=== PATIENT | female | born 1975 | race American Indian/Alaskan Native ===

== ENCOUNTER 2016-06-28 16:16 | Emergency (ER) | payer OTHER, MEDICAID | END 2016-06-28 16:59 | disposition left against medical advice (07) | LOC: DL.ED 16:16 | DX: Z53.21 Procedure and treatment not carried out due to patient leaving prior to being seen by health care provider (principal) ==

== ENCOUNTER 2016-07-15 17:00 | Emergency (ER) | payer OTHER, MEDICAID ==
--- NOTE | 2016-07-15 17:03 | EDM.PDOC ---
<Ozzie Sanches - Last Filed: 07/15/16 18:52> ED HPI DIABETIC EMERGENCY - General Chief Complaint: Headache Stated Complaint: HEADACHE Time Seen by Provider: 07/15/16 17:47 Source of Information: Reports: Patient, Old records, RN, RN notes reviewed History Limitations: Reports: No limitations - Related Data Allergies/ADRs: Allergies Allergy/AdvReac Type Severity Reaction Status Date / Time No Known Allergies Allergy Verified 07/15/16 17:39 Home Meds: Home Meds Acetaminophen [Tylenol] 650 mg PO ASDIRECTED PRN 05/07/16 [History] Ibuprofen 400 mg PO ASDIRECTED PRN 05/07/16 [History] Past Medical History HEENT History: Reports: Sinusitis Cardiovascular History: Reports: High cholesterol, Hypertension Respiratory History: Reports: Bronchitis, recurrent Gastrointestinal History: Reports: None Genitourinary History: Reports: UTI, recurrent 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: , Other (see below) Other OB/BYN History: all c-sect Musculoskeletal History: Reports: Fibromyalgia Neurological History: Reports: Migraines Psychiatric History: Reports: None Endocrine/Metabolic History: Reports: Diabetes, type II Hematologic History: Reports: Anemia, Blood transfusion(s) Immunologic History: Reports: None Oncologic (Cancer) History: Reports: None Dermatologic History: Reports: None - Infectious Disease History Infectious Disease History: Reports: Chicken pox - Past Surgical History Head Surgeries/Procedures: Reports: None Social & Family History - Family History Cardiac: Reports: High cholesterol, Hypertension, [place] Other Cardiac Family History: unkle on moms side. 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[facility] [employer] Course - Vital Signs Last Recorded V/S: Last Vital Signs Temp 96.7 F 07/15/16 20:26 Pulse 79 07/15/16 20:26 Resp 14 07/15/16 20:26 BP 149/95 H 07/15/16 20:26 Pulse Ox 99 07/15/16 20:26 - Orders/Labs/Meds Orders: Active Orders 24 hr Category Date Time Status POC Glucose [Blood Glucose Check, Bedside] [RC] ONETIME Care 07/15/16 17:50 Active Ready for Discharge [RC] PER UNIT ROUTINE Care 07/15/16 20:30 Ordered Labs: Laboratory Tests 07/15/16 07/15/16 07/15/16 Range/Units 17:49 19:25 19:25 WBC 7.5 (5.0-10.0) 10^3/uL RBC 4.06 L (4.2-5.4) 10^6/uL Hgb 8.9 L (12.0-16.0) g/dL Hct 28.9 L (37.0-47.0) % MCV 71.2 L (80-100) fL MCH 21.9 L (27.0-34.0) pg MCHC 30.8 L (33.0-35.0) g/dL Plt Count 355 (150-450) 10^3/uL Neut % (Auto) 57.2 (42.2-75.2) % Lymph % (Auto) 34.5 (20.5-50.1) % [place] % (Auto) 5.7 (2-8) % Eos % (Auto) 2.3 (1.0-3.0) % Baso % (Auto) 0.3 (0.0-1.0) % Sodium 136 (135-145) mmol/L Potassium 3.5 L (3.6-5.0) mmol/L Chloride 103 (101-111) mmol/L Carbon Dioxide 25.0 (21.0-31.0) mmol/L Anion Gap 11.5 BUN 15 (7-18) mg/dL Creatinine 0.5 L (0.6-1.3) mg/dL Est Cr Clr Drug Dosing TNP Estimated GFR (MDRD) > 60 BUN/Creatinine Ratio 30.00 Glucose 137 H (74-105) mg/dL POC Glucose 153 H (70-105) mg/dl Calcium 8.5 (8.4-10.2) mg/dl Total Bilirubin 0.3 (0.2-1.0) mg/dL AST 16 (10-42) IU/L ALT 13 (10-60) IU/L Alkaline Phosphatase 66 (42-121) IU/L Total Protein 6.6 L (6.7-8.2) g/dl Albumin 3.8 (3.2-5.5) g/dl Globulin 2.8 Albumin/Globulin Ratio 1.36 Meds: Medications Discontinued Medications Generic Name Dose Route Start Last Admin Trade Name Maverick PRN Reason Stop Dose Admin Sodium Chloride 1,000 mls @ 999 mls/hr 07/15/16 19:11 07/15/16 19:27 Normal Saline IV 07/15/16 20:11 999 mls/hr .BOLUS ONE Administration Ketorolac Tromethamine 30 mg 07/15/16 19:12 07/15/16 19:29 Toradol IVPUSH 07/15/16 19:13 30 mg ONETIME ONE Administration Ondansetron HCl 4 mg 07/15/16 19:12 07/15/16 19:27 Zofran IV 07/15/16 19:13 4 mg ONETIME ONE Administration Departure - Departure Disposition: Home, Self-Care 01 Clinical Impression: Tension-type headache Additional Instructions: Follow up in clinic. Dr. Kait Mckeon is here during the month of July and she would be happy to see you in the clinic to help manage some of your health conditions. You may start an over the counter multivitamin with iron to help your low blood counts. - My Orders Last 24 Hours: My Active Orders 07/15/16 20:30 Ready for Discharge [RC] PER UNIT ROUTINE - Assessment/Plan Last 24 Hours: My Active Orders 07/15/16 20:30 Ready for Discharge [RC] PER UNIT ROUTINE <Kait Mckeon - Last Filed: 07/15/16 20:39> ED HPI DIABETIC EMERGENCY - History of Present Illness INITIAL COMMENTS - FREE TEXT/NARRATIVE: Nichol Ridley is a 41 year old female presenting to the ED with 3 days of headache. She has a history of uncontrolled diabetes, hypertension, and hyperlipidemia. She is concerned about her headache because her mother has a history of strokes and Nichol knows she is not in good health. She reports 3 days of headache pain that is intermittent. It affects the posterior aspect of the head and wraps to the front. The pain is sharp and throbbing. She had an episode of dizziness and "just not feeling right" this afternoon that passed. She has tried Tylenol and ibuprofen as recent as 2-3 PM today without relief. She reports pain of 6-7/10. This is not the worst headache of her life. She has some noise sensitivity and subjective warmth. She denies vision changes. She is feeling anxious and had some chest tightness but it has past. Past Medical History Endocrine/Metabolic History: Reports: Diabetes, type II ED ROS GENERAL - Review of Systems Review Of Systems: ROS reveals no pertinent complaints other than HPI. ED EXAM GENERAL NO PERIP PULSE - Physical Exam Exam: See Below Exam Limited By: No limitations General Appearance: alert, anxious, mild distress (due to pain) Eye Exam: bilateral eye: nystagmus (2 beats of lateral nystagmus bilaterally that extinguish with repeat testing), PERRL (normal) Ears: normal external exam, normal canal, normal TMs Nose: normal inspection, normal mucosa, no blood Throat/Mouth: Normal inspection, Normal lips, Normal teeth, Normal gums, Normal oropharynx, Normal voice, No airway compromise Head: atraumatic, normocephalic Neck: normal inspection, supple, non-tender, full range of motion Respiratory/Chest: no respiratory distress, lungs clear, normal breath sounds, no accessory muscle use, chest non-tender Cardiovascular: normal peripheral pulses, regular rate, rhythm, no edema, no gallop, no JVD, no murmur, no rub GI/Abdominal: normal bowel sounds, soft, non tender, no organomegaly, no distention, no abnormal bruit, no mass Back Exam: normal inspection, full range of motion, NT Extremities: normal inspection, normal range of motion, non-tender, normal capillary refill, no pedal edema Neurological: alert, oriented, CN II-XII intact, normal cognition, normal gait, normal reflexes, no motor/sensory deficits Psychiatric: normal affect, normal mood Course - Re-Assessments/Exams Free Text/Narrative Re-Assessment/Exam: 07/15/16 20:33 Patient was re-evaluated and her headache pain decreased to 4/10 intensity in the frontal aspect of the head following pain medication and IV fluids. Her hemoglobin is low at 8.9 and she reports just finishing a heavy period. We discussed the need to start OTC iron and close outpatient follow-up of her multiple medical conditions. She is in improved condition and ready for discharge to home. 07/15/16 20:38 Departure - Departure Time of Disposition: 20:39 - My Orders Last 24 Hours: My Active Orders 07/15/16 20:30 Ready for Discharge [RC] PER UNIT ROUTINE - Assessment/Plan Last 24 Hours: My Active Orders 07/15/16 20:30 Ready for Discharge [RC] PER UNIT ROUTINE Assessment:: Headache Likely iron deficiency anemia Uncontrolled DMT2 Uncontrolled HTN Dysmenorrhea by history Patient has an improved level of headache pain and is discharged to home with recommendations for close outpatient follow-up. She will start an OTC multivitamin with iron and increase PO hydration. Questions were answered and she is comfortable with the plan.
[2016-07-15] MEDS ORDERED: Sodium Chloride 0.9% 1,000 ML IV ONE (19:11)
[2016-07-15] MEDS ORDERED: Ketorolac 30 MG/ML SDV IVPUSH ONE (19:12)
[2016-07-15] MEDS ORDERED: Ondansetron 4 MG/2 ML SDV IV ONE (19:12)
[2016-07-15 19:51] LABS: CHLORIDE,CL 103 mmol/L (101-111); SODIUM,NA 136 mmol/L (135-145)
[2016-07-15 20:27] VITALS: BP 149/95
== END 2016-07-15 20:50 | disposition home or self-care (01) ==
LOC: DL.ED 17:00
DX: G44.209 Tension-type headache, unspecified, not intractable (principal); E11.9 Type 2 diabetes mellitus without complications; I10 Essential (primary) hypertension; E78.00 Pure hypercholesterolemia, unspecified; Z86.2 Personal history of diseases of the blood and blood-forming organs and certain disorders involving the immune mechanism
CPT/HCPCS: 36415; 80053; 82962; 85025; 96365; 96375; 99284; J1885; J2405; J7030

== ENCOUNTER 2017-01-04 10:28 | Emergency (ER) | payer OTHER ==
--- NOTE | 2017-01-04 10:32 | EDM.PDOC ---
ED HPI GENERAL MEDICAL PROBLEM - General Chief Complaint: General Stated Complaint: ACHY, SICK Time Seen by Provider: 01/04/17 10:31 Source of Information: Reports: Patient, RN, RN Notes Reviewed History Limitations: Reports: No Limitations - History of Present Illness INITIAL COMMENTS - FREE TEXT/NARRATIVE: Patient presents to the ER with c/o generalized aches. SHe states she feels nauseated at times, but does not vomit. She feels as if she has the chills frequently but is unsure about a fever. She denies chest pain or sob. She denies any diarrhea. She admits to having headaches at times, and some frontal pressure. She states she did not go to work yesterday or today. Onset: Gradual Onset Date: 01/03/17 Duration: Constant Location: Reports: Generalized Quality: Reports: Ache Severity: Moderate Improves with: Reports: None Worsens with: Reports: None Associated Symptoms: Reports: Fever/Chills, Headaches Headache Pain Score (Numeric/FACES): 8 - Related Data Allergies Allergy/AdvReac Type Severity Reaction Status Date / Time No Known Allergies Allergy Verified 01/04/17 10:44 Home Meds: Home Meds Acetaminophen 975 mg PO QID PRN 01/04/17 [History] Aspirin [Adult Low Dose Aspirin EC] 81 mg PO DAILY 01/04/17 [History] Aspirin [Ecotrin] 81 mg PO DAILY 01/04/17 [History] Ferrous Gluconate 324 mg PO TID 01/04/17 [History] Ibuprofen 800 mg PO Q6HR PRN 01/04/17 [History] Loratadine 10 mg PO DAILY PRN 01/04/17 [History] Past Medical History HEENT History: Reports: Sinusitis Cardiovascular History: Reports: High Cholesterol, Hypertension Respiratory History: Reports: Bronchitis, Recurrent Gastrointestinal History: Reports: None Genitourinary History: Reports: UTI, Recurrent 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: , 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) Other OB/BYN History: all c-sect Musculoskeletal History: Reports: Fibromyalgia Neurological History: Reports: Migraines Psychiatric History: Reports: None Endocrine/Metabolic History: Reports: Diabetes, Type II Hematologic History: Reports: Anemia, Blood Transfusion(s) Immunologic History: Reports: None Oncologic (Cancer) History: Reports: None Dermatologic History: Reports: None - Infectious Disease History Infectious Disease History: Reports: Chicken Pox - Past Surgical History Female Surgical History: Reports: Tubal Ligation Social & Family History - Family History Family Medical History: Noncontributory Cardiac: Reports: High Cholesterol, Hypertension, [place] Other Cardiac Family History: unkle on moms side. Musculoskeletal: Reports: Back pain, Chronic Other Musculoskeletal Family History: brother Endocrine/Metabolic: Reports: Diabetes, type II Other Endocrine/Metabolic Family History: mom - Tobacco Use Smoking Status *Q: Never Smoker Years of Tobacco use: 5 Used Tobacco, but Quit: Yes Month Tobacco Last Used: apr 5 years ago Second Hand Smoke Exposure: No - Caffeine Use Caffeine Use: Reports: Coffee, Tea - Alcohol Use Days Per Week of Alcohol Use: 0 - Recreational Drug Use Recreational Drug Use: No - Living Situation & Occupation Occupation: Employed ED ROS GENERAL - Review of Systems Review Of Systems: ROS reveals no pertinent complaints other than HPI. ED EXAM, GENERAL - Physical Exam Exam: See Below Exam Limited By: No Limitations General Appearance: Alert, WD/WN, No Apparent Distress Eye Exam: Bilateral Eye: Normal Inspection, PERRL Ears: Normal External Exam, Normal Canal, Hearing Grossly Normal, Normal TMs Nose: Normal Inspection, Normal Mucosa, No Blood Throat/Mouth: Normal Inspection, Normal Lips, Normal Teeth, Normal Gums, Normal Oropharynx, Normal Voice, No Airway Compromise Head: Atraumatic, Normocephalic Neck: Normal Inspection Respiratory/Chest: No Respiratory Distress, Lungs Clear, Normal Breath Sounds, No Accessory Muscle Use, Chest Non-Tender Cardiovascular: Normal Peripheral Pulses, Regular Rate, Rhythm, No Edema, No Gallop, No JVD, No Murmur, No Rub Peripheral Pulses: 2+: Radial (L), Radial (R) GI/Abdominal: Normal Bowel Sounds, Soft, Non-Tender, No Organomegaly, No Distention, No Abnormal Bruit, No Mass, Pelvis Stable (Female) Exam: Deferred Rectal (Female) Exam: Deferred Back Exam: Normal Inspection, Full Range of Motion Extremities: Normal Inspection, Normal Range of Motion, Non-Tender, No Pedal Edema, Normal Capillary Refill Neurological: Alert, Oriented, Normal Cognition, Normal Gait, No Motor/Sensory Deficits Psychiatric: Normal Affect, Normal Mood Skin Exam: Warm, Dry, Intact, Normal Color, No Rash Lymphatic: No Adenopathy Course - Vital Signs Last Recorded V/S: Last Vital Signs Temp 98 F 01/04/17 10:46 Pulse 70 01/04/17 10:46 Resp 16 01/04/17 10:46 BP 109/69 01/04/17 10:46 Pulse Ox 99 01/04/17 10:46 - Orders/Labs/Meds Labs: Group A Strep screen: NEGATIVE Influenza A & B: NEGATIVE Departure - Departure Time of Disposition: 11:46 Disposition: Home, Self-Care 01 Condition: Good Clinical Impression: Viral upper respiratory infection - Discharge Information Instructions: Upper Respiratory Infection, Adult, [id number] Forms: ED Department Discharge Additional Instructions: Drink plenty of fluids. Rest. Follow up in the clinic this week if no improvement. Use the Flonase you have at home as directed. Tylenol as directed for pain/fever. Ibuprofen as directed for pain/fever.
[2017-01-04 10:47] VITALS: BP 109/69
[2017-01-04] MEDS ORDERED: Lidocaine/EPINEPHrine/Tetracaine Soln 5 ML Each TOP ONE (11:28)
== END 2017-01-04 11:55 | disposition home or self-care (01) ==
LOC: DL.ED 10:28
DX: J06.9 Acute upper respiratory infection, unspecified (principal); I10 Essential (primary) hypertension; E78.00 Pure hypercholesterolemia, unspecified; E11.9 Type 2 diabetes mellitus without complications; Z86.2 Personal history of diseases of the blood and blood-forming organs and certain disorders involving the immune mechanism; Z98.51 Tubal ligation status; Z79.82 Long term (current) use of aspirin
CPT/HCPCS: 87081; 87430; 87804; 99283

== ENCOUNTER 2017-04-15 19:23 | Emergency (ER) | payer OTHER ==
[2017-04-15 19:41] VITALS: BP 145/82
--- NOTE | 2017-04-15 19:48 | EDM.PDOC ---
ED HPI GENERAL MEDICAL PROBLEM - General Chief Complaint: Lower Extremity Injury/Pain Stated Complaint: TIBURCIO AZAR [id number] Time Seen by Provider: 04/15/17 19:44 Source of Information: Reports: Patient, RN, RN Notes Reviewed History Limitations: Reports: No Limitations - History of Present Illness INITIAL COMMENTS - FREE TEXT/NARRATIVE: Pt presents to the ER with c/o pain in the tailbone area. She states she slipped yesterday on the ice. She states she hit her head first and then the low back and buttocks area. She states she has a lump on the back of the head. She states when she hit her head "everything went black for a second, but came back" but did not lose consciousness. She states her pain in her tailbone area makes it difficult to sit. She states it feels better when she stands. Onset: Sudden Onset Date: 04/14/17 Quality: Reports: Ache, Throbbing Severity: Moderate Improves with: Reports: None Worsens with: Reports: None Associated Symptoms: Reports: No Other Symptoms Treatments MEDICATION SPECIALIST: Reports: NSAIDS Pelvic Pain Score (Numeric/FACES): 8 - Related Data Allergies Allergy/AdvReac Type Severity Reaction Status Date / Time No Known Allergies Allergy Verified 01/04/17 10:44 Home Meds: Home Meds Acetaminophen 975 mg PO QID PRN 01/04/17 [History] Aspirin [Ecotrin] 81 mg PO DAILY 01/04/17 [History] Ferrous Gluconate 324 mg PO DAILY 01/04/17 [History] Ibuprofen 800 mg PO Q6HR PRN 01/04/17 [History] Loratadine 10 mg PO DAILY PRN 01/04/17 [History] Past Medical History HEENT History: Reports: Sinusitis Cardiovascular History: Reports: High Cholesterol, Hypertension Respiratory History: Reports: Bronchitis, Recurrent Gastrointestinal History: Reports: None Genitourinary History: Reports: UTI, Recurrent 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: , 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) Other OB/BYN History: all c-sect Musculoskeletal History: Reports: Fibromyalgia Neurological History: Reports: Migraines Psychiatric History: Reports: None Endocrine/Metabolic History: Reports: Diabetes, Type II Hematologic History: Reports: Anemia, Blood Transfusion(s) Immunologic History: Reports: None Oncologic (Cancer) History: Reports: None Dermatologic History: Reports: None - Infectious Disease History Infectious Disease History: Reports: Chicken Pox - Past Surgical History Female Surgical History: Reports: Tubal Ligation Social & Family History - Family History Family Medical History: Noncontributory Cardiac: Reports: High Cholesterol, Hypertension, [place] Other Cardiac Family History: unkle on moms side. Musculoskeletal: Reports: Back pain, Chronic Other Musculoskeletal Family History: brother Endocrine/Metabolic: Reports: Diabetes, type II Other Endocrine/Metabolic Family History: mom - Tobacco Use Smoking Status *Q: Unknown Ever Smoked Years of Tobacco use: 5 Used Tobacco, but Quit: Yes Month Tobacco Last Used: apr 5 years ago Second Hand Smoke Exposure: No - Caffeine Use Caffeine Use: Reports: Coffee - Alcohol Use Days Per Week of Alcohol Use: 0 - Recreational Drug Use Recreational Drug Use: No - Living Situation & Occupation Occupation: Employed Review of Systems - Review of Systems Review Of Systems: ROS reveals no pertinent complaints other than HPI. ED EXAM, GENERAL - Physical Exam Exam: See Below Exam Limited By: No Limitations General Appearance: Alert, WD/WN, Mild Distress Eye Exam: Bilateral Eye: EOMI, Normal Inspection, PERRL Ears: Normal External Exam, Hearing Grossly Normal Nose: Normal Inspection Throat/Mouth: Normal Inspection, Normal Voice, No Airway Compromise Head: Atraumatic, Normocephalic Neck: Normal Inspection Respiratory/Chest: No Respiratory Distress, Lungs Clear, Normal Breath Sounds, No Accessory Muscle Use, Chest Non-Tender Cardiovascular: Normal Peripheral Pulses, Regular Rate, Rhythm, No Edema, No Gallop, No JVD, No Murmur, No Rub Peripheral Pulses: 2+: Radial (L), Radial (R) GI/Abdominal: Normal Bowel Sounds, Soft, Non-Tender, No Distention (Female) Exam: Deferred Rectal (Female) Exam: Deferred Back Exam: Normal Inspection, Decreased Range of Motion Extremities: Normal Inspection, Normal Range of Motion, Non-Tender, No Pedal Edema, Normal Capillary Refill Neurological: Alert, Oriented, CN II-XII Intact, Normal Cognition, Normal Gait, Normal Reflexes, No Motor/Sensory Deficits Psychiatric: Normal Affect, Normal Mood Skin Exam: Warm, Dry, Intact, Normal Color, No Rash Lymphatic: No Adenopathy Course - Vital Signs Last Recorded V/S: Last Vital Signs Temp 97.1 F 04/15/17 19:40 Pulse 83 04/15/17 19:40 Resp 16 04/15/17 19:40 BP 145/82 H 04/15/17 19:40 Pulse Ox 100 04/15/17 19:40 - Radiology Interpretation Free Text/Narrative:: Sacrum and coccyx/lumbar xray: Suspected hairline fracture of the distal coccyx. No dislocation. Departure - Departure Time of Disposition: 21:19 Disposition: Home, Self-Care 01 Condition: Fair Clinical Impression: Fracture of coccyx, initial encounter for closed fracture - Discharge Information Instructions: Tailbone Injury, [id number] Forms: ED Department Discharge Additional Instructions: Ibuprofen for pain May purchase a blow up "donut" at [facility] or pharmacy for more comfort sitting Ice the area as tolerated. Follow up with your primary care facility if no improvement.
== END 2017-04-15 21:26 | disposition home or self-care (01) ==
LOC: DL.ED 19:23
DX: S32.2XXA Fracture of coccyx, initial encounter for closed fracture (principal); I10 Essential (primary) hypertension; E11.9 Type 2 diabetes mellitus without complications; E78.00 Pure hypercholesterolemia, unspecified; Z87.891 Personal history of nicotine dependence; Z79.82 Long term (current) use of aspirin; Z79.899 Other long term (current) drug therapy; W00.9XXA Unspecified fall due to ice and snow, initial encounter
CPT/HCPCS: 72100; 72220; 99283

== ENCOUNTER 2017-12-30 19:16 | Emergency (ER) | payer OTHER ==
[2017-12-30 19:24] VITALS: BP 164/71
--- NOTE | 2017-12-30 19:51 | EDM.PDOC ---
ED HPI GENERAL MEDICAL PROBLEM - General Chief Complaint: ENT Problem Stated Complaint: SINUS INFECTION? [id number] Time Seen by Provider: 12/30/17 19:49 Source of Information: Reports: Patient History Limitations: Reports: No Limitations - History of Present Illness INITIAL COMMENTS - FREE TEXT/NARRATIVE: c/o F/C body aches past few days, been taking motrin only helps short period. Generalized Pain Score (Numeric/FACES): 7 - Related Data Allergies Allergy/AdvReac Type Severity Reaction Status Date / Time No Known Allergies Allergy Verified 12/30/17 19:27 Home Meds: Home Meds Acetaminophen 975 mg PO QID PRN 01/04/17 [History] Aspirin [Ecotrin] 81 mg PO DAILY 01/04/17 [History] Ferrous Gluconate 324 mg PO DAILY 01/04/17 [History] Ibuprofen 800 mg PO Q6HR PRN 01/04/17 [History] Loratadine 10 mg PO DAILY PRN 01/04/17 [History] Past Medical History HEENT History: Reports: Impaired Vision, Sinusitis Cardiovascular History: Reports: High Cholesterol, Hypertension Respiratory History: Reports: Bronchitis, Recurrent Gastrointestinal History: Reports: None Genitourinary History: Reports: UTI, Recurrent 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: , 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 Musculoskeletal History: Reports: Fibromyalgia Neurological History: Reports: Migraines Psychiatric History: Reports: None Endocrine/Metabolic History: Reports: Diabetes, Type II Hematologic History: Reports: Anemia, Blood Transfusion(s) Immunologic History: Reports: None Oncologic (Cancer) History: Reports: None Dermatologic History: Reports: None - Infectious Disease History Infectious Disease History: Reports: Chicken Pox - Past Surgical History Head Surgeries/Procedures: Reports: None Female Surgical History: Reports: Tubal Ligation Social & Family History - Family History Family Medical History: Noncontributory Cardiac: Reports: High Cholesterol, Hypertension, [place] Other Cardiac Family History: unkle on moms side. Musculoskeletal: Reports: Back pain, Chronic Other Musculoskeletal Family History: brother Endocrine/Metabolic: Reports: Diabetes, type II Other Endocrine/Metabolic Family History: mom - Tobacco Use Smoking Status *Q: Never Smoker - Caffeine Use Caffeine Use: Reports: Coffee - Recreational Drug Use Recreational Drug Use: No - Living Situation & Occupation Occupation: Employed ED ROS ENT - Review of Systems Review Of Systems: ROS reveals no pertinent complaints other than HPI. ED EXAM, ENT - Physical Exam Exam: See Below Exam Limited By: No Limitations General Appearance: Alert, WD/WN, No Apparent Distress, Other (upset) Ears: TM Dullness Mouth/Throat: Normal Oropharynx Head: Atraumatic Neck: Non-Tender, Full Range of Motion Respiratory/Chest: No Respiratory Distress, Lungs Clear, Normal Breath Sounds Cardiovascular: Regular Rate, Rhythm GI/Abdominal: Soft, Non-Tender Neurological: Alert, Oriented, Normal Cognition, Normal Gait, No Motor/Sensory Deficits Psychiatric: Flat Affect Skin: Warm, Dry, Normal Color Lymphatic: No Adenopathy Course - Vital Signs Last Recorded V/S: Last Vital Signs Temp 36.9 C 12/30/17 19:21 Pulse 86 12/30/17 19:21 Resp 20 12/30/17 19:21 BP 164/71 H 12/30/17 19:21 Pulse Ox 99 12/30/17 19:21 - Orders/Labs/Meds Orders: Active Orders 24 hr Category Date Time Status CULTURE STREP A CONFIRMATION [RM] Stat Lab 12/30/17 19:32 Results STREP SCRN A RAPID W CULT CONF [RM] Stat Lab 12/30/17 19:32 Results - Re-Assessments/Exams Free Text/Narrative Re-Assessment/Exam: 12/30/17 20:02 results discussed with pt. Departure - Departure Time of Disposition: 20:02 Disposition: Home, Self-Care 01 Condition: Good Clinical Impression: Flu syndrome - Discharge Information Instructions: Upper Respiratory Infection, Adult, [id number] Forms: ED Department Discharge Additional Instructions: 1) sleep as much as possible 2) drink lots of liquids 3) continue motrin for fever and body aches 4) follow up at clinic - My Orders Last 24 Hours: My Active Orders 12/30/17 19:32 CULTURE STREP A CONFIRMATION [RM] Stat STREP SCRN A RAPID W CULT CONF [RM] Stat - Assessment/Plan Last 24 Hours: My Active Orders 12/30/17 19:32 CULTURE STREP A CONFIRMATION [RM] Stat STREP SCRN A RAPID W CULT CONF [RM] Stat
== END 2017-12-30 20:09 | disposition home or self-care (01) ==
LOC: DL.ED 19:16
DX: J11.1 Influenza due to unidentified influenza virus with other respiratory manifestations (principal); I10 Essential (primary) hypertension; E11.9 Type 2 diabetes mellitus without complications; Z79.82 Long term (current) use of aspirin
CPT/HCPCS: 87081; 87430; 87804; 99283

== ENCOUNTER 2018-09-17 08:51 | Emergency (ER) | payer SELFPAY ==
[2018-09-17 09:28] VITALS: BP 142/67
--- NOTE | 2018-09-17 10:30 | EDM.PDOC ---
Scribed by Cathie Voss 09/17/18 1030 for Nataliia Pham NP ED HPI GENERAL MEDICAL PROBLEM - General Chief Complaint: Abdominal Pain Stated Complaint: ABD PAINS [id number] Time Seen by Provider: 09/17/18 09:20 Source of Information: Reports: Patient, RN, RN Notes Reviewed History Limitations: Reports: No Limitations - History of Present Illness INITIAL COMMENTS - FREE TEXT/NARRATIVE: Patient presents to ER with complaint of stomach cramps x3 days. Points to epigastric region--upper abdomen. Bowel movements are normal. She rates her pain 7-8/10--comes and goes. The pain is sharp. She also pulled a large wood tick off her left breast (nipple areola). She has had nausea and headache. No diarrhea, vomiting, fever, chills, chest pain or shortness of breath. 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) Abdominal Pain Score (Numeric/FACES): 8 - Related Data Allergies Allergy/AdvReac Type Severity Reaction Status Date / Time No Known Allergies Allergy Verified 09/17/18 09:16 Home Meds: Home Meds Aspirin [Halfprin] 09/17/18 [History] Iron 09/17/18 [History] Lidocaine 5% [Lidoderm 5%] 09/17/18 [History] metFORMIN [Glucophage XR] 09/17/18 [History] Past Medical History Cardiovascular History: Reports: High Cholesterol, Hypertension Endocrine/Metabolic History: Reports: Diabetes, Type II - Past Surgical History Female Surgical History: Reports: Section, Tubal Ligation Social & Family History - Family History Family Medical History: Noncontributory - Tobacco Use Smoking Status *Q: Never Smoker - Caffeine Use Caffeine Use: Reports: Coffee - Recreational Drug Use Recreational Drug Use: No ED ROS GENERAL - Review of Systems Review Of Systems: ROS reveals no pertinent complaints other than HPI. ED EXAM, GI/ABD - Physical Exam Exam: See Below Exam Limited By: No Limitations General Appearance: Alert, WD/WN, No Apparent Distress Eyes: Bilateral: Normal Appearance Ears: Normal External Exam, Normal Canal, Hearing Grossly Normal, Normal TMs Nose: Normal Inspection, Normal Mucosa, No Blood Throat/Mouth: Normal Inspection, Normal Lips, Normal Teeth, Normal Gums, Normal Oropharynx, Normal Voice, No Airway Compromise Head: Atraumatic, Normocephalic Neck: Normal Inspection, Supple, Non-Tender, Full Range of Motion Respiratory/Chest: No Respiratory Distress, Lungs Clear, Normal Breath Sounds, No Accessory Muscle Use, Chest Non-Tender Cardiovascular: Normal Peripheral Pulses, Regular Rate, Rhythm, No Edema, No Gallop, No JVD, No Murmur, No Rub GI/Abdominal Exam: Other (tender right upper quadrant and left upper quadrant) (Female) Exam: Deferred Rectal (Female) Exam: Deferred Back Exam: Normal Inspection, Full Range of Motion, NT Extremities: Normal Inspection, Normal Range of Motion, Non-Tender, Normal Capillary Refill, No Pedal Edema Neurological: Alert, Oriented, CN II-XII Intact, Normal Cognition, Normal Gait, Normal Reflexes, No Motor/Sensory Deficits Psychiatric: Normal Affect, Normal Mood Skin Exam: Other (left areolar tick bite small lesion. ) Lymphatic: No Adenopathy Course - Vital Signs Last Recorded V/S: Last Vital Signs Temp 97.8 F 09/17/18 09:18 Pulse 78 09/17/18 09:18 Resp 16 09/17/18 09:18 BP 142/67 H 09/17/18 09:18 Pulse Ox 98 09/17/18 09:18 - Re-Assessments/Exams Free Text/Narrative Re-Assessment/Exam: 09/17/18 10:30 Patient left room before labs drawn. Patient was talking on the phone and stated she needed to leave. Departure - Departure Time of Disposition: 10:29 Disposition: Against Medical Advice 07 Condition: Fair Clinical Impression: Abdominal pain Qualifiers: Abdominal location: upper abdomen, unspecified Qualified Code(s): R10.10 - Upper abdominal pain, unspecified - Discharge Information *PRESCRIPTION DRUG MONITORING PROGRAM REVIEWED*: No *COPY OF PRESCRIPTION DRUG MONITORING REPORT IN PATIENT VISHNU: No Forms: ED Department Discharge I have read and agree with the documentation that has been completed regarding this visit. By signing this record, I attest that the documentation was completed in my physical presence and is an accurate record of the encounter.
== END 2018-09-17 09:50 | disposition left against medical advice (07) ==
LOC: MERGE 08:51 → DL.ED 08:51
DX: S20.162A Insect bite (nonvenomous) of breast, left breast, initial encounter (principal); R10.11 Right upper quadrant pain; R10.12 Left upper quadrant pain; I10 Essential (primary) hypertension; E11.9 Type 2 diabetes mellitus without complications; Z98.51 Tubal ligation status; Z79.82 Long term (current) use of aspirin; Z79.84 Long term (current) use of oral hypoglycemic drugs; W57.XXXA Bitten or stung by nonvenomous insect and other nonvenomous arthropods, initial encounter
CPT/HCPCS: 99283

== ENCOUNTER 2019-06-17 18:29 | Emergency (ER) | payer BC, OTHER ==
[2019-06-17] MEDS ORDERED: Albuterol 6.7 GM Inhaler INH ONE (18:30)
[2019-06-17 18:59] VITALS: BP 165/79; PULSE 90
--- NOTE | 2019-06-17 19:32 | EDM.PDOC ---
ED HPI GENERAL MEDICAL PROBLEM - General Chief Complaint: Respiratory Problem Stated Complaint: FLU, BREATHING Time Seen by Provider: 06/17/19 19:14 Source of Information: Reports: Patient History Limitations: Reports: No Limitations - History of Present Illness INITIAL COMMENTS - FREE TEXT/NARRATIVE: ED with c/o SOB x 2 weeks, worse in am and after shower. 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 Diabetic with peripheral neuropathy, is not on any medications currently, does not check blood sugars. 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 - Related Data Allergies Allergy/AdvReac Type Severity Reaction Status Date / Time No Known Allergies Allergy Verified 12/30/17 19:27 Home Meds: Home Meds Acetaminophen 975 mg PO QID PRN 01/04/17 [History] Aspirin [Ecotrin] 81 mg PO DAILY 01/04/17 [History] Ferrous Gluconate 324 mg PO DAILY 01/04/17 [History] Ibuprofen 800 mg PO Q6HR PRN 01/04/17 [History] Loratadine 10 mg PO DAILY PRN 01/04/17 [History] Aspirin [Halfprin] 09/17/18 [History] Iron 09/17/18 [History] Lidocaine 5% [Lidoderm 5%] 09/17/18 [History] metFORMIN [Glucophage XR] 09/17/18 [History] Past Medical History HEENT History: Reports: Impaired Vision, Sinusitis Cardiovascular History: Reports: High Cholesterol, Hypertension Respiratory History: Reports: Bronchitis, Recurrent Gastrointestinal History: Reports: None Genitourinary History: Reports: UTI, Recurrent 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), Other CAFETERIA ATTENDANT History: all c-sect Musculoskeletal History: Reports: Fibromyalgia Neurological History: Reports: Migraines Psychiatric History: Reports: None Endocrine/Metabolic History: Reports: Diabetes, Type II Hematologic History: Reports: Anemia, Blood Transfusion(s) Immunologic History: Reports: None Oncologic (Cancer) History: Reports: None Dermatologic History: Reports: None - Infectious Disease History Infectious Disease History: Reports: Chicken Pox - Past Surgical History Head Surgeries/Procedures: Reports: None Female Surgical History: Reports: Section, Tubal Ligation Social & Family History - Family History Family Medical History: Noncontributory Cardiac: Reports: High Cholesterol, Hypertension, NC Other Cardiac Family History: unkle on moms side. Musculoskeletal: Reports: Back pain, Chronic Other Musculoskeletal Family History: brother Endocrine/Metabolic: Reports: Diabetes, type II Other Endocrine/Metabolic Family History: mom - Tobacco Use Smoking Status *Q: Unknown Ever Smoked Second Hand Smoke Exposure: No - Caffeine Use Caffeine Use: Reports: Coffee, Soda - Recreational Drug Use Recreational Drug Use: No - Living Situation & Occupation Occupation: Employed ED ROS GENERAL - Review of Systems Review Of Systems: Comprehensive ROS is negative, except as noted in HPI. ED EXAM, GENERAL - Physical Exam Exam: See Below Exam Limited By: No Limitations General Appearance: Alert, Anxious, Mild Distress Eye Exam: Bilateral Eye: EOMI Ears: Normal External Exam, Normal Canal, Hearing Grossly Normal Nose: Normal Inspection Throat/Mouth: Normal Inspection Head: Atraumatic Neck: Normal Inspection Respiratory/Chest: No Respiratory Distress, Lungs Clear, Chest Non-Tender, Decreased Breath Sounds. No: Respiratory Distress Cardiovascular: Normal Peripheral Pulses, Regular Rate, Rhythm, No Edema GI/Abdominal: Normal Bowel Sounds Back Exam: Full Range of Motion Extremities: Normal Inspection Neurological: Alert, Oriented, Normal Cognition Skin Exam: Warm, Dry, Intact, Pallor Course - Vital Signs Last Recorded V/S: Last Vital Signs Temp 97.3 F 06/17/19 18:55 Pulse 90 06/17/19 18:55 Resp 18 06/17/19 18:55 BP 165/79 H 06/17/19 18:55 Pulse Ox 100 06/17/19 18:55 - Orders/Labs/Meds Orders: Active Orders 24 hr Category Date Time Status Blood Glucose Check, Bedside [RC] ONETIME Care 06/17/19 19:18 Active RT Aerosol Therapy [RC] ASDIRECTED Care 06/17/19 19:19 Active Labs: Laboratory Tests 06/17/19 06/17/19 Range/Units 19:45 19:45 WBC 7.7 (5.0-10.0) 10^3/uL RBC 4.26 (4.2-5.4) 10^6/uL Hgb 9.0 L (12.0-16.0) g/dL Hct 29.6 L (37.0-47.0) % MCV 69.5 L (80-100) fL MCH 21.1 L (27.0-34.0) pg MCHC 30.4 L (33.0-35.0) g/dL Plt Count 409 (150-450) 10^3/uL Neut % (Auto) 55.9 (42.2-75.2) % Lymph % (Auto) 36.8 (20.5-50.1) % [place] % (Auto) 4.7 (2-8) % Eos % (Auto) 2.3 (1.0-3.0) % Baso % (Auto) 0.3 (0.0-1.0) % Sodium 139 (136-145) mmol/L Potassium 3.8 (3.5-5.1) mmol/L Chloride 103 (98-107) mmol/L Carbon Dioxide 27 (21-32) mmol/L Anion Gap 12.8 (7-13) mEq/L BUN 14 (7-18) mg/dL Creatinine 0.68 (0.55-1.02) mg/dL Est Cr Clr Drug Dosing 80.73 mL/min Estimated GFR (MDRD) > 60 BUN/Creatinine Ratio 20.6 (No establ ref range) Glucose 209 H (74-99) mg/dL Calcium 8.5 (8.5-10.1) mg/dL Total Bilirubin 0.2 (0.2-1.0) mg/dL AST 9 L (15-37) U/L ALT 20 (14-59) U/L Alkaline Phosphatase 101 (46-116) U/L Total Protein 7.1 (6.4-8.2) g/dL Albumin 3.6 (3.4-5.0) g/dL Globulin 3.5 Albumin/Globulin Ratio 1.0 Meds: Medications Discontinued Medications Generic Name Dose Route Start Last Admin Trade Name Freq PRN Reason Stop Dose Admin Albuterol 2.5 mg 06/17/19 19:18 06/17/19 19:34 Proventil Neb Soln NEB 06/17/19 19:19 2.5 mg ONETIME ONE Administration Albuterol Confirm 06/17/19 20:27 06/17/19 20:30 Proventil Hfa Administered 06/17/19 20:28 Not Given Dose 6.7 gm INH .STK-MED ONE - Radiology Interpretation Free Text/Narrative:: [facility] Final Radiology Report Call: [phone] assistance Online chat: [email or web address] Name: BLAISE AQUINO Age: 44Years F Date: 06/17/2019 SSN: -- : [id number] Study: XR CHEST 2 VIEWS FRONTAL & LAT Requesting Physician: JOSE DAVID PEREYRA Images: 2 Addl Studies: Provided Clinical History: Contrast: Contrast Medium: Contrast Amount: Contrast Method: CONFIDENTIALITY STATEMENT This report is intended only for use by the referring physician, and only in accordance with law. If you received this in error, call [phone]. Page 1 of 1 PROCEDURE INFORMATION: Exam: XR Chest, 2 Views Exam date and time: 06/17/2019 7:28 PM Age: 44 years old Clinical indication: Shortness of breath TECHNIQUE: Imaging protocol: XR of the chest Views: 2 views. COMPARISON: No relevant prior studies available. FINDINGS: Lungs: Unremarkable. No consolidation. Pleural space: Unremarkable. No pleural effusion. No pneumothorax. Heart/Mediastinum: Unremarkable. No cardiomegaly. Bones/joints: Unremarkable. IMPRESSION: No acute findings. Thank you for allowing us to participate in the care of your patient. Dictated and Authenticated by: Julio Valero MD Departure - Departure Time of Disposition: 20:27 Disposition: Home, Self-Care 01 Condition: Good Clinical Impression: SOB (shortness of breath) Reactive airway disease Qualifiers: Asthma severity: mild Asthma persistence: intermittent Asthma complication type : with acute exacerbation Qualified Code(s): J45.21 - Mild intermittent asthma with (acute) exacerbation - Discharge Information *PRESCRIPTION DRUG MONITORING PROGRAM REVIEWED*: No *COPY OF PRESCRIPTION DRUG MONITORING REPORT IN PATIENT VISHNU: No Instructions: Bronchospasm, Adult Referrals: PCP,Unobtain [Primary Care Provider] - Forms: ED Department Discharge Additional Instructions: albuterol inhaler 2 puffs every 4 hours as needed clinic follow up for diabetes and anemia multivitamin with iron daily limit exposure to chemical fumes and other respiratory irritants follow up if symptoms worsen Sepsis Event Note - Evaluation Sepsis Screening Result: No Definite Risk - Focused Exam Vital Signs: Vital Signs Temp Pulse Resp BP Pulse Ox 06/17/19 18:55 97.3 F 90 18 165/79 H 100 Date Exam was Performed: 06/18/19 Time Exam was Performed: 05:22 - My Orders Last 24 Hours: My Active Orders 06/17/19 19:18 Blood Glucose Check, Bedside [RC] ONETIME 06/17/19 19:19 RT Aerosol Therapy [RC] ASDIRECTED - Assessment/Plan Last 24 Hours: My Active Orders 06/17/19 19:18 Blood Glucose Check, Bedside [RC] ONETIME 06/17/19 19:19 RT Aerosol Therapy [RC] ASDIRECTED
[2019-06-17] MEDS: Albuterol 0.083% 2.5 MG/3 ML Neb Soln NEB ONE (19:34)
[2019-06-17 20:13] LABS: ANION GAP 12.8 mEq/L (7-13); CHLORIDE,CL 103 mmol/L (98-107); SODIUM,NA 139 mmol/L (136-145)
[2019-06-17] MEDS: Albuterol 6.7 GM Inhaler INH ONE (20:30)
== END 2019-06-17 20:35 | disposition home or self-care (01) ==
LOC: DL.ED 18:29
DX: J45.21 Mild intermittent asthma with (acute) exacerbation (principal); E11.42 Type 2 diabetes mellitus with diabetic polyneuropathy; E78.00 Pure hypercholesterolemia, unspecified; I10 Essential (primary) hypertension; Z79.82 Long term (current) use of aspirin; Z79.84 Long term (current) use of oral hypoglycemic drugs; Z79.899 Other long term (current) drug therapy
CPT/HCPCS: 36415; 71046; 80053; 82962; 85025; 94640; 99285-25; A9270-GY; J7613-GY